=== PATIENT | male | born 1945 | race Two or more races ===

== ENCOUNTER → 2020-06-27 | Outpatient (CLI) | payer MEDICARE ==
[~2020-06-27] MED LIST: CLOP75TA28 PO; DONE5TAB80 PO; ENAL5TAB10 PO
== END | disposition home or self-care (01) ==
LOC: LAB 14:49
PROVIDERS: ATTEND Physician Assistant
DX: Z20.822 Contact with and (suspected) exposure to COVID-19 (principal)
CPT/HCPCS: 87426